=== PATIENT | female | born 1995 | race African-American/Black ===

== ENCOUNTER 2018-06-08 07:07 | Emergency (ER) | payer MEDICAID ==
[~2018-06-08] VITALS: Ht 172.7 cm; Wt 100.0 kg
[2018-06-08] MEDS ORDERED: ONDANSETRON 4MG ODT PO ONE (07:45)
[2018-06-08] MEDS ORDERED: CYCLOBENZAPRINE 10MG TABLET PO ONE (07:45)
[2018-06-08] MEDS ORDERED: KETOROLAC 60MG/2ML VIAL IM ONE (07:45)
[2018-06-08 08:26] LABS: CLARITY URINE CLEAR (CLEAR); COLOR URINE YELLOW (YELLOW); KETONES URINE NEGATIVE (NEGATIVE); LEUKOCYTE ESTERASE URINE NEGATIVE (NEGATIVE); NITRITE URINE NEGATIVE (NEGATIVE); OCCULT BLOOD URINE NEGATIVE (NEGATIVE); PH URINE 6.5 (4.5-8.0); PROTEIN URINE NEGATIVE (NEGATIVE); SPECIFIC GRAVITY URINE 1.005 (1.005-1.030); UROBILINOGEN URINE 0.2 E.U./dL (0.2-1.0)
[2018-06-08 09:10] VITALS: BP 132/65
== END 2018-06-08 09:13 | disposition home or self-care (01) ==
LOC: ER 08:06
DX: S33.5XXA Sprain of ligaments of lumbar spine, initial encounter (principal); D64.9 Anemia, unspecified; R25.2 Cramp and spasm; X58.XXXA Exposure to other specified factors, initial encounter; Y93.89 Activity, other specified; Y92.89 Other specified places as the place of occurrence of the external cause; Y99.8 Other external cause status
CPT/HCPCS: 81003; 81025; 99283; Q0162; Z7610; J1885

== ENCOUNTER 2018-08-29 16:49 | Emergency (ER) | payer MEDICAID ==
[~2018-08-29] VITALS: Ht 157.5 cm; Wt 99.0 kg
[2018-08-29 17:03] VITALS: BP 131/76
== END 2018-08-30 01:33 | disposition left against medical advice (07) ==
LOC: ER 20:00
DX: Z53.21 Procedure and treatment not carried out due to patient leaving prior to being seen by health care provider (principal)